=== PATIENT | female | born 1940 | race Caucasian/White ===

== ENCOUNTER → 2020-08-20 | Outpatient (CLI) | payer MEDICARE, OTHER ==
[~2020-08-20] MED LIST: NORCO 7.5-3251 EACH PO; OMEPRAZOLE20 MG PO; ONDANSETRON ODT4 MG PO
== END ==
LOC: KOH-I 16:06
DX: R06.09 Other forms of dyspnea (principal); R91.8 Other nonspecific abnormal finding of lung field
CPT/HCPCS: 71046

== ENCOUNTER → 2020-11-19 | Outpatient (CLI) | payer MEDICARE, OTHER | LOC: ECHO 09:58 | DX: R06.09 Other forms of dyspnea (principal); I51.7 Cardiomegaly; R93.1 Abnormal findings on diagnostic imaging of heart and coronary circulation | CPT/HCPCS: ECHO; 93306 ==

== ENCOUNTER → 2021-12-18 | Outpatient (CLI) | payer MEDICARE, OTHER | LOC: US 13:00 | DX: M25.511 Pain in right shoulder (principal); M25.521 Pain in right elbow; M79.601 Pain in right arm; M79.89 Other specified soft tissue disorders | CPT/HCPCS: 73030; 73060; 73070; 93931; 93971 ==